=== PATIENT | male | born 1985 | race Caucasian/White ===

== ENCOUNTER 2019-01-24 18:14 | Emergency (ER) | payer SELFPAY ==
--- NOTE | 2019-01-24 18:40 | PDOC ---
Rapid Medical Evaluation Chief Complaint: Pain, Acute Time Seen by Provider: 01/24/19 18:35 Medical Evaluation: Allergies Allergy/AdvReac Type Severity Reaction Status Date / Time No Known Allergies Allergy Verified 01/24/19 18:34 01/24/19 18:36 I have performed a brief in-person evaluation of this patient. The patient presents with a chief complaint of: R testicular pain x 2 weeks w/ ? dysuria. No penile discharge, n/v/f/c. No h/o STDs Pertinent physical exam findings: Stable and well kizzy, rest of exam deferred to ED provider I have ordered the following:ua/cx/US The patient will proceed to the ED for further evaluation. 01/24/19 18:40 Discharge Disposition - Diagnosis Testicular pain, right - Referrals - Patient Instructions - Post Discharge Activity
[2019-01-24 18:41] VITALS: BP 123/70; PULSE 58; TEMP 98.4; BMI 29.2
--- NOTE | 2019-01-24 20:26 | PDOC ---
*Physical Exam - Vital Signs Last Vital Signs Temp Pulse Resp BP Pulse Ox 98.4 F 58 L 17 123/70 99 01/24/19 18:35 01/24/19 18:35 01/24/19 18:35 01/24/19 18:35 01/24/19 18:35 ED Treatment Course - LABORATORY CBC & Chemistry Diagram: 01/24/19 21:00 01/24/19 21:00 Medical Decision Making - Medical Decision Making 01/24/19 20:25 Patient seen by the advanced practice provider under my direct supervision. Ancillary testing reviewed as necessary. I agree with plan as outlined by the advanced practice provider. *DC/Admit/Observation/Transfer Diagnosis at time of Disposition: Testicular pain, right - Referrals - Patient Instructions - Post Discharge Activity
--- NOTE | 2019-01-24 21:17 | PDOC ---
History of Present Illness - General Chief Complaint: Pain, Acute Stated Complaint: ABD PAIN Time Seen by Provider: 01/24/19 18:35 History Source: Patient - History of Present Illness Initial Comments: 01/24/19 23:57 33 year old male c/o RLQ pain radiating to right groin & testicle x 2 weeks. denies NVD, fever/ chills, urinary symptoms. Past History - Past Medical History Allergies/Adverse Reactions: Allergies Allergy/AdvReac Type Severity Reaction Status Date / Time No Known Allergies Allergy Verified 01/24/19 18:34 COPD: No - Surgical History Abdominal Surgery: No - Immunization History Immunization Up to Date: Yes - Suicide/Smoking/Psychosocial Hx Smoking History: Never smoked Hx Alcohol Use: No Drug/Substance Use Hx: No *Physical Exam - Vital Signs Last Vital Signs Temp Pulse Resp BP Pulse Ox 98.4 F 58 L 17 123/70 99 01/24/19 18:35 01/24/19 18:35 01/24/19 18:35 01/24/19 18:35 01/24/19 18:35 - Physical Exam General Appearance: Yes: Appropriately Dressed HEENT: positive: Normal ENT Inspection Cardiovascular: positive: Regular Rhythm, Regular Rate Gastrointestinal/Abdominal: positive: Normal Bowel Sounds, Tender (RLQ), Soft Male Genitalia: positive: normal genitalia, normal prostate. negative: testicular tenderness, inguinal hernia Musculoskeletal: positive: Normal Inspection Extremity: positive: Normal Capillary Refill, Normal Inspection, Normal Range of Motion Integumentary: positive: Normal Color, Dry, Warm Neurologic: positive: Fully Oriented, Alert, Normal Mood/Affect ED Treatment Course - LABORATORY CBC & Chemistry Diagram: 01/24/19 21:00 01/24/19 21:00 Medical Decision Making - Medical Decision Making 01/25/19 01:28 A: RLQ pain ; hernia P: labs Scrotal US CTAP: neg umbilical hernia. incidental findings and copy of CT scan given to patient for outpatient follow up . *DC/Admit/Observation/Transfer Diagnosis at time of Disposition: RLQ abdominal pain, Hernia - Discharge Dispostion Disposition: HOME Condition at time of disposition: Improved - Referrals Referrals: John Mas MD [Staff Physician] - - Patient Instructions Printed Discharge Instructions: DI for Abdominal Pain-Adult Additional Instructions: no heavy lifting. follow up with a surgeon doctor return to the ER if symptoms worsen., Print Language: GUINEAN - Post Discharge Activity Forms/Work/School Notes: Back to Work
[2019-01-24 21:31] LABS: BASO % 0.5 % (0-2.0); EOS % 3.2 % (0-4.5); HEMATOCRIT 44.5 % (35.4-49); HEMOGLOBIN 15.1 GM/dL (11.7-16.9); MCH 30.5 pg (25.7-33.7); MEAN CELL VOLUME 89.8 fl (80-96); MEAN PLT VOLUME 7.8 fl (7.5-11.1); MONO % 8.2 % (3.8-10.2); NEUT % 42.1 % (42.8-82.8); PLATELET COUNT 233 K/MM3 (134-434); RBC 4.95 M/mm3 (4.00-5.60); RDW 13.7 % (11.9-15.9); WHITE BLOOD COUNT 5.9 K/mm3 (4.0-10.0)
[2019-01-24 21:32] LABS: EPI CELLS 0.8 /HPF (0-5/HPF); URINE APPEARANCE CLEAR; URINE BACTERIA 6.6 /hpf (NEGATIVE); URINE BILIRUBIN NEGATIVE (NEGATIVE); URINE CASTS 0 /lpf (0-8); URINE COLOR YELLOW; URINE GLUCOSE (UA) NEGATIVE (NEGATIVE); URINE KETONE NEGATIVE (NEGATIVE); URINE LEUK ESTERASE TRACE (NEGATIVE); URINE NITRITE NEGATIVE (NEGATIVE); URINE PROTEIN NEGATIVE (NEGATIVE); URINE RBC 0 /hpf (0-4); URINE UROBILINOGEN 0.2 mg/dL (0.2-1.0); URINE WBC 2 /hpf (0-5)
[2019-01-24 21:43] LABS: INR 0.98 (0.83-1.09); PROTHROMBIN TIME (PATIENT) 11.6 SEC (9.7-13.0)
[2019-01-24 21:46] LABS: ACTIVATED PTT 32.4 SECONDS (25.2-36.5)
[2019-01-24 22:05] LABS: ALBUMIN 4.1 g/dl (3.4-5.0); ALK PHOS 130 U/L (45-117); ANION GAP 8 MMOL/L (8-16); BILIRUBIN,TOTAL 0.5 mg/dL (0.2-1); BLOOD UREA NITROGEN 18 mg/dL (7-18); CALCIUM 8.6 mg/dL (8.5-10.1); CHLORIDE 103 mmol/L (98-107); CO2 26 mmol/L (21-32); CREATININE 0.8 mg/dL (0.55-1.3); GLUCOSE,RANDOM 96 mg/dL (74-106); POTASSIUM 3.9 mmol/L (3.5-5.1); SGOT/AST 27 U/L (15-37); SGPT/ALT 29 U/L (13-61); SODIUM 137 mmol/L (136-145); TOT PROT 7.2 g/dl (6.4-8.2)
== END 2019-01-25 00:17 | disposition home or self-care (01) ==
LOC: JER 18:14
DX: N50.811 Right testicular pain (principal)
CPT/HCPCS: 36415; 74177-TC; 76870-TC; 80053; 81003; 85025; 85610; 85730; 87086; 87491; 87591; 99282-25